=== PATIENT | female | born 1990 | race Caucasian/White ===

== ENCOUNTER 2020-09-20 07:20 | Inpatient (IN) | payer BC ==
[~2020-09-20] VITALS: Ht 162.6 cm; Wt 103.3 kg
[~2020-09-20 07:20] MED LIST: CUPRIMINE250 MG; FAMOTIDINE20 MG PO; IBUPROFEN IB200 MG PO; NEURONTIN300 MG PO; STRATTERA25 MG PO; WELLBUTRIN XL300 MG PO
--- OUTSIDE RECORDS SUMMARY | 2020-09-20 07:22 | XMS ---
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 ED/UCC VISIT TRACKING (12 MO.) 09/20/2020 07:[address] [facility] [place] TYPE: Emergency COMPLAINT: - SUBSTANCE WITHDRAWALS INPATIENT VISIT TRACKING (12 MO.) No inpatient visits to display in this time frame [email or web address]
[2020-09-20] MEDS ORDERED: BUPROPION XL150 MG PO (07:56)
--- NOTE | 2020-09-20 12:47 | EKG ---
[facility] [address] [place], [place] [address] Signed Sinus tachycardia Otherwise normal ECG No previous ECGs available Confirmed by ANNY NEGRETE MD ([id number]) on 09/20/2020 12:47:34 PM Electronically Signed By: ANNY NEGRETE MD 09/20/20 1247 PATIENT NAME: NITA DAMIAN Electrocardiogram DATE OF : 86 PHYSICIAN: ANNY NEGRETE MD REPORT #: [id number] REPORT IS CONFIDENTIAL AND NOT TO BE RELEASED WITHOUT AUTHORIZATION
--- NOTE | 2020-09-20 13:10 | NUR ---
30 YEAR OLD FEMALE ADMITTED TO CCU FROM ED VIA STRETCHER UNDER DR. NEGRETE WITH ALCHOLOL WITHDRAWAL. PATIENT LAST DRINK WAS YESTERDAY. ETOH LEVEL ON ADMIT TO [id number]. PATIENT C/O OF NAUSEA AND TREMORS. ADMISSION PROCESS STARTED. VALIUM 5 MG IV GIVEN FOR SEVERE TREMORS.
[2020-09-20] MEDS ORDERED: ATOMOXETINE HCL60 MG PO (13:42)
[2020-09-20] MEDS ORDERED: BUPROPION XL300 MG PO (13:43)
[2020-09-20] MEDS ORDERED: GABAPENTIN300 MG PO (13:45)
--- NOTE | 2020-09-20 13:45 | NUR ---
VALIUM 5 MG IV REPEATED CWIA >8.
[2020-09-20] MEDS ORDERED: VITAMIN D21250 MCG PO (13:46)
--- NOTE | 2020-09-20 15:00 | NUR ---
C/O ABD DISCOMFORT. -07/31. TYLENOL 650 MG PO GIVEN.
--- NOTE | 2020-09-20 15:40 | NUR ---
UP TO COMMODE. EXTREMELY SHAKEY. HR TO 150'S. PATIENT STATES HOW LONG IS THIS GOING TO LAST. I HAVE TOLD PATIENT SEVERAL TIMES ALREADY TODAY, SHE IS GOING THROUGH DT'S, CONTINUES TO REPEAT HERSELF ABOUT WHAT IS GOING ON WITH HER. UNABLE TO VOID. THIS IS THE SECOND TIME PATIENT ATTEMPTED TO URINATE. WILL NOTIFY .
--- NOTE | 2020-09-20 15:45 | NUR ---
DR. NEGRETE UPDATED ON PATIENT STATUS REGARDING VALIUN, VS AND INABILITY TO URINATE. POWERS CATH ORDERED AND PLACED WITH RETURN OF ORANGE URINE. PATIENT [id number] WELL.
--- NOTE | 2020-09-20 16:10 | NUR ---
UP TO COMMODE WITH ASSIST TO EXPELL SMALL LIQUID FOUL SMELL STOOL. PATIENT STATES SHE HAS BEEN HAVING DIARRHEA STOOLS FOR A FEW DAYS. WILL TALK WITH MD ABOUT SENDING STOOL CULT TO LAB. BACK TO BED WITH ASSIST. CONTINUES TO BE RENÉ EMERSON. HAS RECIEVED VALIUM 5 MG IV APPROX EVERY 1 HR SINCE ADMISSION.
--- NOTE | 2020-09-20 17:35 | NUR ---
UP TO COMMODE TO EXPELL LARGE LIQUID BROWN STOOL. REMAINS VERY UNSTEADY ON FEET. NEEDS MUCH DIRECTION. BACK TO BED W/O INCIDENT.
--- NOTE | 2020-09-20 18:00 | NUR ---
HAS RECIEVED VALIUM 5 MG Q HR SINCE ADMISSION TO CCU. REMAINS WITH SEVERE TREMORS. PATIENT STATES SHE IS AFRAID TO CLOSE HER EYES BECAUSE SHE IS SEEING THINGS.
--- NOTE | 2020-09-20 20:06 | NUR ---
PT AWAKE, STATES DOESN'T FEEL GOOD. DOES HAVE SOME ABD PAIN. HAS TREMORS AND FEES GEN WEAK. STATES SHE DIDN'T KNOW ALCOHOL WITHDRAWL WAS GOING TO BE SO BAD. ASSURE PT THAT STAFF WOULD HELP HER THROUGH IT. SPOKE OF RESTING BOWEL AND CL LIQ DIET. GIVEN 5MG VALIUM IV SCHEDULED. URINE IS SLIGHT ORANGE TINGED.
--- NOTE | 2020-09-20 20:50 | NUR ---
UP TO BSC TO HAVE SMALL LIQ STOOL. VERY UNSTEADY AND WEAK ON FEET. REQUESTING SOMETHING TO HELP WITH SLEEP. DR NEGRETE GIVEN UPDATE AND ORDER FOR OLIVER GARICA.
--- NOTE | 2020-09-20 22:00 | NUR ---
HAVE GIVEN VALIUM Q1 HR FOR CONT ETOH WITHDRAWLS. STATES SEES THINGS WHEN SHE CLOSES HER EYES. IS COOPERATIVE.
--- NOTE | 2020-09-20 23:16 | NUR ---
IS HEARING IV PUMP TALK. GIVEN 5MG VALIUM IV
--- NOTE | 2020-09-20 23:42 | NUR ---
UP TO BSC FOR SMALL LIQ STOOL AND PASSING LARG AMTS GAS.STEADIER ON FEET THIS TIME. WAS GIVEN 650MG TYLENOL PO FOR GEN PAIN/DISCOMFORT.
--- NOTE | 2020-09-21 00:10 | NUR ---
IV SITES TENDER. NEW SITE STARTED TR ARM. GIVEN 5MG VALIUM PO PT CONT TO HAVE VISUAL HALLUCINATIONS. IS COOPERATIVE.
--- NOTE | 2020-09-21 01:16 | NUR ---
GIVEN 5MG VLAIUM IV PT FEELS LIKE BED IS SHAKING.
--- NOTE | 2020-09-21 03:15 | NUR ---
CONT TO RECIEVE 5MG VLAIUM IV FOR WITHDRAWL SYMPTOMS. PT IS ALERT AND ORIENTED AND COOPERATIVE. NOT SLEEPING.
--- NOTE | 2020-09-21 04:20 | NUR ---
UP TO BSC TO HAVE SMALL LIQ STOOL AND PASS GAS. IS LESS TREMULOUS THAN BEFORE ADN PT STATESSHE IS FEELING A LITTLE STRONGER. GIVEN 5MG VALIUM IV . TAKING WATER VERY WELL AND GIVEN PUDDING, JELLO AND CRACKERS IS HUNGRY.
--- NOTE | 2020-09-21 05:30 | NUR ---
LAB IN TO DRAW BLOOD.
--- NOTE | 2020-09-21 06:20 | NUR ---
STATES LEGS ARE STARTING TO GET JUMPY/SHAKY. GIVEN 5MG VALIUM IV. HAS NOT SLEPT THIS NIGHT.
--- NOTE | 2020-09-21 07:14 | NUR ---
UP TO BS, NO BM. C/O GEN ACHES, GIVEN 650MG TYLENOL PO.
--- NOTE | 2020-09-21 07:30 | NUR ---
REPORT RECIEVED. PATIENT IS RESTFUL IN BED. C/O MILD ABD PAIN. TYLENOL GIVEN EARLIER.
--- NOTE | 2020-09-21 08:00 | NUR ---
ASSESSMENT DONE. TALKED WITH PATIENT ABOUT POC FOR DAY. IS UNDERSTANDING. MUCH LESS TREMORS TODAY. CONTINUE TO C/O GENERALIZED PAIN. POWERS CATH PATENT.
--- NOTE | 2020-09-21 08:30 | NUR ---
DR. NEGRETE HERE TO SEE PATIENT. ROUTINE MEDICATIONS GIVEN. PATIENT IS TALKATIVE AND IN GOOD SPIRITS.
--- NOTE | 2020-09-21 09:30 | NUR ---
TOOK BREAKFAST WELL. VALIUM 5 MG PO GIVEN FOR ETOH WITHDRAWAL. TAKING WATER WELL.
--- NOTE | 2020-09-21 12:58 | NUR ---
THIS RN IN TO CHECK ON PT. PT LAYING IN BED WATCHING TV. PT STATES SHE IS FINISHED EATING HER LUNCH. PT ALSO PROVIDED WITH WATER AT THIS TIME. PT REPORTS NO FURTHER NEEDS AT THIS TIME, LUNCH TRAY TAKEN AWAY. WILL CONTINUE PLAN OF CARE, CALL LIGHT IN REACH, BED IN LOWEST POSITION, IVF INFUSING ORDERED.
--- NOTE | 2020-09-21 14:04 | NUR ---
SCHEDULED MEDICATIONS ADMINISTERED AT THIS TIME, SCHEDULED PO VALIUM ADMINISTERED AT THIS TIME. PT DENIES HAVING ANY HALLUCINATIONS AT THIS TIME BUT REPORTS FEELING SLIGHTLY WARM AND STATES SHE HAS SOME MILD TREMORS IN HER "THIGHS". VITALS ASSESSED AND ARE WNL AT THIS TIME. PT ALERT AND ORIENTED X 3. PT REPORTS NO FURTHER NEEDS AT THIS TIME AND IS WATCHING TV LAYING IN BED. WILL CONTINUE PLAN OF CARE, CALL LIGHT IN REACH, BED IN LOWEST POSITION.
--- NOTE | 2020-09-21 15:54 | NUR ---
RESPONDED TO PT CALL LIGHT, PT LAYING IN BED AND STATED THAT HER ABDOMEN WAS FEELING "OFF". BOWEL TONES ASSESSED AND WERE HYPERACTIVE, ABDOMEN WAS SOFT WHEN PALPATING WITH NO COMPLAINTS OF PAIN. PT ASKED IF SHE WANTED TO TRY HAVING A BM AND USING THE BEDSIDE COMMODE, PT STATED YES. PT ABLE TO GET UP AND PIVOT TO [facility], GAIT NOTED TO BE UNSTEADY. PT UNABLE TO HAVE BM. WHEN WIPING HER BACKSIDE PT STATED HER WIPE WAS RUST/HAIRSTON COLORED. WIPE APPEARED TO HAVE A LIGHT HAIRSTON COLOR TO IT. PT STATED SHE HAS YET TO HAVE A BM TODAY. PT REPORTS SHE HAD SOME BLOOD PRESENT IN HER BRIEFS EARLIER, NONE NOTED AT THIS TIME ON BRIEFS OR ON BED/PADS. PT DENIED BEING LIGHTHEADED. PT THEN ABLE TO GET UP AND BACK INTO BED WITHOUT ASISSTANCE. PT DENIED LIGHTHEADEDNESS AND STATED SHE JUST FELT SLIGHTLY WEAK. VITALS TAKEN AT THIS TIME. TRACIE GRAHAM NOW IN ROOM WITH PT. PT REPORTS NO FURTHER NEEDS WHEN ASKED AT THIS TIME, TRACIE GRAHAM IN ROOM, CALL LIGHT IN REACH. WILL CONTINUE PLAN OF CARE.
--- NOTE | 2020-09-21 16:00 | NUR ---
ASSESSMENT DONE. HAS BEEN VOIDING TO COMMODE WITH ASSIST IN TRANSFER. IS MUCH MORE STABLE ON FEET. SMALL AMOUNT OF BLOOD NOTED ON GABBY PAD. PATIENT DENIES PREGNANACY. STATES SHE HAD SMALL AMOUNT OF SPOTTING LAST WEEK WELL. HAS BEEN TAKING WATER EXTREMELY WELL.
[2020-09-21] MEDS ORDERED: NEURONTIN300 MG PO (16:07)
--- NOTE | 2020-09-21 17:00 | NUR ---
PATIENT HAS MULTIPLE DIFFERENT AREAS OF PAIN, IS ANXIOUS REGARDING THIS. VALIUM 10 MG PO GIVEN.
--- NOTE | 2020-09-21 17:15 | NUR ---
IVF DC'D PER DR. NEGRETE ORDERS. PATIENT IS SITTING UP IN BED EATING DINNER.
--- NOTE | 2020-09-21 19:30 | NUR ---
REPORT TO NEXT SHIFT. PATIENT RESTUL
--- NOTE | 2020-09-21 20:30 | NUR ---
PT HAS BEEN RESTING REQUESTING VALIUM BECOMING ANXIOUS AND HAVING HALLUCINATIONS WHEN SHE TRIES TO SLEEP. SEES AND HEARS PEOPLE TRYING TO THROW AND HAND HER FOOD. ALSO C/O LEG ACHES AND THAT HER BODY JERKED. GIVEN 10MG VALIUM PO.
--- NOTE | 2020-09-21 20:50 | NUR ---
ASSISTED TO BSC. IS MUCH STRONGER TONIGHT. GIVEN HS SNACK AND TYLENOL FOR LEG ACHES.
--- NOTE | 2020-09-21 22:53 | NUR ---
SLEPT FOR ABOUT 1 HOUR, C/O LEGS AND ABD SHAKING. GIVEN 300 GABAPENTIN AND 5MG VALIUM PER SCHEDULE.
--- NOTE | 2020-09-22 00:27 | NUR ---
ASLEEP AT THIS TIME. WILL DEFER ASSESSMENT FOR NOW.
--- NOTE | 2020-09-22 02:10 | NUR ---
AWAKE, STATES IS BETTER BUT LEG DISCOMFORT IS BACK. UP TO BSC TO VOID. STARTED TO SEE FACES IN PICTURE ON WALL. GIVEN 650MG TYLENOL PO FOR DISCOMFORT AND 10MG VALIUM FOR ETOH WITHDRAWL.
--- NOTE | 2020-09-22 04:26 | NUR ---
SLEEPING AT THIS TIME.
--- NOTE | 2020-09-22 06:29 | NUR ---
AWAKENS EASILY. AM MEDS GIVEN. UP TO BSC TO VOID AND IS MUCH STEADIER ON FEET.
--- NOTE | 2020-09-22 07:30 | NUR ---
REPORT RECIEVED. PATIENT IS ASLEEP. NO DISTRESS NOTED.
--- NOTE | 2020-09-22 09:01 | NUR ---
SITTING UP IN BED FOR BREAKFAST. ASSESSMENT DONE. STATES SHE FEELS MUCH BETTER TODAY. IS COOPERATIVE. TALKED WITH PATIENT ABOUT POC FOR DAY. IS UNDERSTANDING. SL X 2 PATENT. NATALYAS PAIN.
--- NOTE | 2020-09-22 09:55 | NUR ---
AMBULATED TO WITH USING WALKER, DID WELL UNTIL RETURN TO BED.UPON RETURN TO BED, PATIENT C/O OF NAUSEA STATES SHE IS DIZZY. C/O OF ABD PAIN, HAVING RAMDOM SPPASTIC MOVEMENTS IN BODY, MOANING AND GROWNING. SKIN IS PALE AND DIAPHORTIC.
--- NOTE | 2020-09-22 10:06 | NUR ---
jail keeper assisted pt to the bathroom, pt used walker. Once pt was done she stated she felt light headed and dizzy. once pt got back to bed she because nauseous. lloyd notified rn no other needs at this time
--- NOTE | 2020-09-22 10:10 | NUR ---
ZOFRAN 4 MG IV GIVEN FOLLOWED BY VALIUM 5 MG IV. RETCHING W/O EMESIS.
--- NOTE | 2020-09-22 10:30 | NUR ---
MORE CALM AFTER VALIUN GIVEN, PATIENT ASKING WHY THIS IS HAPPENING. ASKING MANY APPROP QUESTIONS IN REGARD TO HER HEALTH.
--- NOTE | 2020-09-22 11:15 | NUR ---
UP TO COMMODE TO VOID 900 ML OF CLEAR YELLOW URINE.THEN TO CHAIR. UPON TRANSFER TO CHAIR, PATIENT C/O DIZZINESS AND NAUSEA. PATIENT STATES THIS IS JUST THE SAME THING THAT HAPPENED EARLIER, BACK TO BED. PATIENT BEGINING TO CRY. HR 130. DR. NEGRETE HERE IN ROOM AND AWARE OF SITUATION.
--- NOTE | 2020-09-22 11:34 | NUR ---
VALIUM 10 MG PO GIVEN. HAVING SPASTIC MOVEMENTS. PATIENT STATES WHEN SHE HOLDS ON TO HER ABD TIGHT HER SPASITIC MOVEMENTS SUBSIDE AND HER STOMAH FEELS BETTER. DIFFICULT TO EVALUATE PATIENT.
--- NOTE | 2020-09-22 12:00 | NUR ---
DOING MUCH BETTER NOW. LUNCH HELD AT THIS TIME. UA SENT TO LAB.
--- NOTE | 2020-09-22 12:58 | NUR ---
MUCH MORE CALM NOW. PATIENT IS TALKING ABOUT HOW SHE HASN'T BEEN TAKING HER MEDICATIONS FOR OVER THE PAST WEEK. PATIENT ASKING IF HAOW SHE HAS BEEN FEELING COULD BE FROM NOT TAKING THE GABAPENTIN. TOLD PATIENT THIS COULD BE A POSSIBLITY. I WILL TALK WITH MD AND PHARMIST.
--- NOTE | 2020-09-22 14:30 | NUR ---
RESTING WITH TV ON. DENEIS PAIN OR PROBLEMS AT THIS TIME.
--- NOTE | 2020-09-22 16:15 | NUR ---
SPOKE WITH PATIENT IN ROOM. PATIENT AWAKE AND ORIENTED. PATIENT DOES HAVE JUMP IN HR WHEN SITTING UP WITH CONVERSATION INTO 120'S. PATIENT IS TEARFUL ABOUT HER SITUATION. SHE LIVES IN [place] WITH A SISTER. SHE SAYS HER SISTER IS NOT SUPPORTIVE. 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 SHE HAS WORKED THERE TWO YEARS. SHE DRIVES. SHE USES NO DME. SHE STATES SHE HAS A UNDIAGNOSED MENTAL HEALTH PROBLEM. SHE WAS SUICIDAL A FEW YEARS AGO, WAS PLACED INPATIENT HOSPITAL BUT SHE STATES THEY DID NOT HELP HER. THEY "JUST THREW SOME MEDS AT ME". [place]. SHE STATES SHE HAS DEPRESSION. SHE HAS HAD ANXIETY. SHE HAS HAD WAYLON IN THAT SHE GETS EUPHORIC AND SPENDS MONEY. SHE DOES NOT DRINK DAILY, BUT HAS BINGES. SHE HAS TRIED TO FIND A COUNSELOR HERE. WENT TO ONE SHE DID NOT LIKE. SHE HAS CURRENTLY SEEN [facility], BUT SHE STATES "I THOUGHT HE WAS A COUNSELOR BUT ALL HE DOES IS GIVES ME MEDS". SHE HAS A PCP IN [place], [facility]. SHE HAS MULTIPLE FAMILY MEMBERS WHO ARE DRUG/ETOH ABUSERS, INCLUDING HER MOM, BIOLOGICAL FATHER AND SIBLINGS. SHE STATES SHE IS THE MOST STABLE SHE HAS WORKED CONSISTENTLY. BUT SHE IS AFRAID TO LOOSE HER JOB AND THAT SECURITY. SHE WANTS HELP WITH MENTAL HEALTH AND ETOH USE. SHE IS OPEN TO DUAL TREATMENT CENTER IF SHE WON'T LOOSE HER JOB. IF NOT SHE WANTS COUNSELING TO TRY AND GET A "REAL DIAGNOSIS". SHE IS OPEN TO ANY OPTIONS FOR HELP. WE DISCUSSED SHE START WITH HER INSURANCE TO SEE WHAT THEY WILL COVER AND WHERE SHE CAN GO. SHE IS OK WITH CM CALLING THEM AND ASKING FOR SOMEONE TO WORK WITH HER. SHE STATES THIS IS THE FIRST TIME SHE HAS HAD WITHDRAWL OR PROBLEMS LIKE THIS WITH THE ETOH. "IT SCARED ME". SHE STATES A SISTER ALMOST FROM WITHDRAWL ONCE. SHE STATES SHE TRIED AA HERE, BUT IT WAS A COUPLE PEOPLE THERE AND THERE WAS NO SPONSORS. SHE HAS NOT SEEN [facility]. PLAN IS THAT I WILL CALL HER INSURANCE TOMORROW. SHE IS OPEN TO A&D HELP. CM WILL CONTINUE TO FOLLOW.
--- NOTE | 2020-09-22 16:15 | NUR ---
JOINT FILLER TALKING WITH PATIENT.
--- NOTE | 2020-09-22 19:40 | NUR ---
HAS BEEN CALM FOR PAST SEVERAL HOURS. REPORT TO NEXT SHIFT.
--- NOTE | 2020-09-22 21:00 | NUR ---
HAS BEEN RESTFULL AND CALM. IS SOMEWHAT DISCOURAGED BY EARLIER EVENTS. REASURED. ASSISTED TO WASH HAIR AT BEDSIDE.
--- NOTE | 2020-09-22 21:45 | NUR ---
HS MEDS GIVEN. READY FOR SLEEP.
--- NOTE | 2020-09-22 23:40 | NUR ---
PT IS SLEEPING
--- NOTE | 2020-09-23 01:05 | NUR ---
PT SLEEPING VS AND ASSESSMENT DEFERRED.
--- NOTE | 2020-09-23 02:30 | NUR ---
UP TO VOID. MARNIE WELL
--- NOTE | 2020-09-23 04:30 | NUR ---
CONT TO SLEEP.
--- NOTE | 2020-09-23 05:30 | NUR ---
AWAKENED FOR LAB DRAW. NO C/O. SLEPT WELL. GIVEN WATER AND JIUCE.
--- NOTE | 2020-09-23 07:30 | NUR ---
report recieved. PATIENT IS RESTING IN BED. NO DISTRESS NOTED.
--- NOTE | 2020-09-23 08:00 | NUR ---
ASSESSMENT DONE. DENIES PAIN. TALKED WITH PATIENT ABOUT POC FOR DAY, INDICATES UNDERSTANDING. SITTING UP IN BED FOR BREAKFAST. VERY TALKATIVE.
--- NOTE | 2020-09-23 10:00 | NUR ---
AMBULATING TO BR USING WALKER. HR TO 130 WITH EXERTION. C/O SOME DIZZINESS WITH AMBULATION. NO TREMORS NOTED. FEELS FLUSHED AT TIMES.
--- NOTE | 2020-09-23 10:30 | NUR ---
SITTING UP IN CHAIR. LOOKING AT PHONE AND HAS TV ON. DR. NEGRETE HERE TO SEE PATIENT.
--- NOTE | 2020-09-23 15:00 | NUR ---
Spoke with Caryl. She is attempting to complete on line form for FMLA and ST disability through her insurance. Pt is agitated and having difficulty as she is shakey and cannot remember numbers or what she has read. Stayed with pt and walked her through form. When completed we discussed Peer to Peer support. She denies she has an alcohol problem, but states her mom and sister are both drunks. She feels she has a mental health issue and this is why she drinks. Discussed [facility], [facility], and [facility]. She would like and appt with [facility] and does agree to speak with [facility] for mental health and alcohol use. She states she knows she is an addict. Informed I will set up appts for her to get help.
--- NOTE | 2020-09-23 15:30 | NUR ---
AMBULATED TO ROOM 118 FROM 129 FOR SHOWER. HR 130 AT HIGHEST. DENIES DIZZINESS OR PAIN. MOVING MUCH BETTER. HAS BEEN USING WALKER WITH AMBULATION.
--- NOTE | 2020-09-23 15:45 | NUR ---
ASSESSMENT UNCHANGED. TOLERATED SHOWER WELL, DENIES PAIN OR DIZZINESS. HAS BEEN VOIDING LARGE AMOUNTS OF URINE AT A TIME. DENIES S/S OF UTI.
--- NOTE | 2020-09-23 16:40 | NUR ---
Called and spoke with Lesley at [facility] from [facility]. She will visit [facility] tomorrow AM. Called and scheduled appt with [facility] for October 02 at 3 pm. Rn updated.
--- NOTE | 2020-09-23 17:23 | NUR ---
SITTING UP IN BED TO EAT EAT DINNER.
--- NOTE | 2020-09-23 18:34 | NUR ---
HAS HAD VERY GOOD DAY. RESTING. DR. NEGRETE AWARE, NO FUTHER ORDRS.
--- NOTE | 2020-09-23 19:54 | NUR ---
AMB TO BR AND MARNIE WELL. STATES SOMETIMES STILL GETS A LITTLE DIZZY AND OCC BLURRED VISION BUT OVERALL IMPROVING. ASSURED THOSE THINGS WOULD ALSO IMPROVE WITH TIME. DISCUSSED PLAN FOR SLEEP TONIGHT AND GIVEN PROTIEN PACK A SNACK.
--- NOTE | 2020-09-23 21:11 | NUR ---
AMB TO BR TO VOID, MARNIE WELL. READY FOR SLEEP. HS MEDS GIVEN. TYLENOL GIVEN FOR LEG AND HIP SORENESS.
--- NOTE | 2020-09-23 23:15 | NUR ---
AMB TO BR TO VOID AND TRY TO HAVE BM. MARNIE WELL. NO OTHER C/O.
--- NOTE | 2020-09-24 03:30 | NUR ---
PT CON TO SLEEP SOUNDLY
--- NOTE | 2020-09-24 05:58 | NUR ---
AWAKENED FOR LAB DRAW AND AM MEDS. AMB TO BATHROOM ON OWN USING WALKER AND DID VERY WELL. STATES VISION HAD BEEN BLURRY BUT CLEAR THIS AM. TALKED ABOUT POSSABILTY OF GOING TO ALCOHOLICS ANONYMOUS WITH HER SISTER IN THE FUTURE. LOOKING FORWARD TO BREAKFAST.
--- NOTE | 2020-09-24 08:40 | NUR ---
PT CALL LIGHT ON. PT REQUESTS ASSISTANCE UP TO RESTROOM, STAND BY RAJAT WITH FRONT WHEEL WALKER UP TO RESTROOM. PT VOIDS 350ML CLEAR YELLOW URINE WITHOUT ISSUE. PT PERFORMS SELF MORNING CARES AND ORAL CARE. STAND BY ASSIST WITH FWW UP TO CHAIR. ICE WATER REFILLED. LINENS CHANGED. PT EATING BREAKFAST, NO ADDITIONAL REQUESTS OR COMPLAINTS. CALL LIGHT WITHIN REACH. PTS RN AT BEDSIDE WORKING WITH PT.
--- NOTE | 2020-09-24 09:02 | NUR ---
PT U ELIDIA RECLINER CONSUMED 100% OF BREAKFAST. TALKING, ALERT AND ORIENTED, TALKING ABOUT ETOH TREATMENT AND PLAN FOR LIFE CHANGES
--- NOTE | 2020-09-24 10:55 | NUR ---
HARI..PEER TO PEER SUPERVISOR [facility] IN ROOM NOW TO VISIT.
--- NOTE | 2020-09-24 10:58 | NUR ---
PT TAKEN OFF MONITOR IN ROOM, V/S STABLE AT THIS TIME. HR 97 BPM
--- NOTE | 2020-09-24 12:14 | NUR ---
pt transfered to m/s at this time to rogerio kc.
--- NOTE | 2020-09-24 12:19 | NUR ---
Patient to medical floor. Patiend arrived to unit alert and oriented x4. Vital signs are stable, afebrile. Lunch to patient. Patient denies sob, no notable distress. Oriented patient to room and call light. No current needs.
--- NOTE | 2020-09-24 14:54 | NUR ---
PATIENT SET UP FOR SHOWER, USING SHOWER CHAIR. PATIENT UNDERSTANDS TO CALL IF SHE NEEDS ANYTHING AT ALL WHILE IN SHOWER. PATIENT NOT HAPPY ABOUT USING FWW, THIS GRIP WRAPPER EXPLAINED TO PATIENT SHE IS STILL VERY WEAK SO WALKER IS VERY HELPFUL FOR SUPPORT. LINENS CHANGED. VITALS AND I&OS CHARTED. NO OTHER NEEDS AT THIS TIME
--- NOTE | 2020-09-24 16:04 | NUR ---
Patient resting in bed, eyes closed, respirations even and non labored. Patient has no distress. Personal supplies and call light within reach.
--- NOTE | 2020-09-24 16:30 | NUR ---
Received 3 calls from pts egg caser at [facility]. Received numbers for [facility] and [facility] which can assist her. Pt also spoke with Lesley from [facility] this am. Lesley called with update as pt does not feel she has an issue with alcohol. Lesley states she will not be able to place pt into rehab if she does not accept responsibility for her alcohol use. [facility] will return today and offer what is available to this pt. Updated Lesley I made an appt with [facility] also as pt feels this it the direction she needs to go to seek help.
--- NOTE | 2020-09-24 17:58 | NUR ---
PATIENT RESTING IN BED, EYES CLOSED. WOKE TO VOICE. VITALS AND I&OS CHARTED. FRESH ICE WATER PROVIDED, CALL LIGHT IN REACH, NO OTHER NEEDS AT THIS TIME
--- NOTE | 2020-09-24 20:07 | NUR ---
PATIENT GIVEN PM MEDS AND ASSESSMENT COMPLETE. PATIENT HAVING NO SIGNS OR SYMPTOMS OF WITHDRAWL AT THIS TIME. UP TO THE BATHROOM WITH FWW AND BACK TO BED. CALL LIGHT IS IN REACH AND ICE WATER REFILLED.
--- NOTE | 2020-09-24 23:18 | NUR ---
PATIENT AMBULATED FROM BED TO BATHROOM AND BACK TO BED, SBA WITH FWW. FRESH ICE WATER WAS PROVIDED. VITALS WERE CHARTED. CALL LIGHT IN REACH AND NO FURTHER NEEDS AT THIS TIME.
--- NOTE | 2020-09-25 02:02 | NUR ---
PATIENT RESTING QUIETLY ON HER LEFT SIDE IN BED, EYES CLOSED, RESPIRATIONS REGULAR AND EVEN, CALL LIGHT IS IN REACH.
--- NOTE | 2020-09-25 06:46 | NUR ---
PATIENT HAS SLEPT WELL. NO SIGNS OR SYMPTOMS OF WITHDRAWL. GOOD ORAL INTAKE, VS STABLE, LUNGS CLEAR, AND BOWEL TONES ACTIVE. ICE WATER REFILLED AND PATIENT'S CALL LIGHT IS IN REACH.
--- NOTE | 2020-09-25 07:21 | NUR ---
Received 3 phone messages from Mayda at [facility] requesting my email as she was able to determine which counseling programs are in Network for this patient. Called and left my email.
--- NOTE | 2020-09-25 07:41 | NUR ---
REPORT RECEIVED FROM TRACIE ROSADO. PT UP TO CHAIR. PT REPORTS 04/30 ACHING HEADACHE. SEE MAR FOR MEDICAITON GIVEN. WATER REFILLED. PT DENIES ADDITIONAL REQUESTS OR COMPLAINTS. PT REPORTS "FEELING MUCH BETTER TODAY." CALL LIGHT WITHIN REACH. BED RAILS UP.
--- NOTE | 2020-09-25 09:07 | NUR ---
ORDERS TO PLACE TELEMETRY. TELE #5 PLACED. PT IN BED. PRIMARY NURSE NOTIFIED.
--- NOTE | 2020-09-25 09:47 | NUR ---
MORNING ASSESSMENT AND MEDICATION DUE. PT RESTING IN BED. TALKING WITH PHILIP FROM [facility] AT BEDSIDE WORKING WITH PT TO COMPLETE QUESTIONARE. PT FINISHED WITH BREAKFAST, AT 100%. PT REPORTS MILD NAUSEA AFTER BREAKFAST. PT STATES HER HEADACHE HAS RESOLVED. CIWA SCORE OF 4 PT STATES SHE IS "SO SWEATY," MILD NAUSEA AND MILD ANXIETY. PT INTERACTING WITH STAFF AND VISITORS APPROPRAITLY. PT ORIENTED TO ALL. PT REPORTS FEELINGS OF CONSTIPATION, SEE MAR FOR MEDICATION GIVEN. BRUISES OVER SKIN REMAIN UNCHANGED. MEDICATIONS GIVEN. PT CONTINUES VISITING WITH HARI SALCEDO. PTS MOTHER AT BEDSIDE. NO ADDITIONAL REQUESTS OR COMPLAINTS. CALL LIGHT WIHTIN REACH. BED RAILS UP.
--- NOTE | 2020-09-25 10:15 | NUR ---
THIS RN TO ROOM TO CHECK ON PT. PT SITTING UP IN BED. CONTINUES TO REPORT "FEELING REALLY SWEATY." PT DENIES PAIN AND NAUSEA. PHYSICAL THERAPIST TO BESIDE TO WORK WITH PT. PT DENIES ADDITIONAL REQUESTS OR COMPLAINTS. CALL LIGHT WITHIN REACH.
--- NOTE | 2020-09-25 11:15 | NUR ---
THIS RN TO ROOM TO CHECK ON PT. PT SITTING UP IN BED VISITING WITH HER MOTHER. CAREGIVER TRAY ORDERED FOR HER MOTHER. ICE WATER REFILLED. 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 PT STATES SHE WILL WAIT TO TAKE A SHOWER UNTIL AFTER DINNER. NO ADDITIONAL REQUESTS OR COMPLAINTS. CALL LIGHT WITHIN REACH.
--- NOTE | 2020-09-25 11:45 | NUR ---
Spoke with Caryl. Updated I have spoken with her CM from [facility] and gave her the options available. She worked with [facility] this AM for counseling. Pt states she still requires a walker.
--- NOTE | 2020-09-25 12:10 | NUR ---
THIS RN TO ROOM TO CHECK ON PT. PT FINISHED WITH LUNCH. PT REPORTS BOTH DIZZINESS AND SWEATINESS HAVE IMPROVED. PT DENIES HEADACHE AND NAUSEA. NO TREMORS NOTED. CIWA SCORE OF 2. PT UP TO AMBULATE IN ROOM, SBA, STEADY ON FEET WITHOUT WALKER. PT UP TO SHOWER. NO ASSISTANCE NEEDED, SITTING ON SHOWER CHAIR, INDEPENDANT WITH ADLS. LINENS CHANGED. ORAL CARE DONE BY PT. MEDICATIONS GIVEN. PT DENIES ADDITIONAL REQUESTS OR COMPLAINTS. CALL LIGHT WITHIN REACH. BED RAILS UP.
--- NOTE | 2020-09-25 12:55 | NUR ---
BAG OF PTS HOME MEDICATIONS FOUND AT FOOT OF BED IN PTS ROOM. PT STATES SHE WAS GOING THROUGH HER MEDICATIONS WITH PHILIP FROM [facility]. PT STATES SHE HAS NOT TAKEN ANY OF THESE MEDICATIONS SINCE SHE ARRIVED AT THE HOSPITAL BUT THAT CCU NURSES WERE USING VIALS TO VERIFY HER HOME MEDICATIONS. BAG OF MEDICATIONS GIVEN TO PTS MOTHER TO TAKE HOME.
--- NOTE | 2020-09-25 15:00 | NUR ---
AFTERNOON ASSESSMENT DUE. MD TO BEDSIDE FOR ROUNDS. PT VERBALIZES UNDERSTANDING OF PLAN OF CARE. PT REQUESTS THAT IV BE REMOVED. PT VERBALIZES UNDERSTANDING THAT IV WILL HAVE TO BE RESTARTED IF HER CONDITION CHANGES. PT CONTINUES TO REQUEST IV REMOVAL. MD STATES OK TO REMOVE IV AT THIS TIME. IV DC'D PER PROTOCOL, GAUZE AND COBAN APPLIED. LUNG SOUNDS CLEAR. HEART RATE 80-90'S AT THIS TIME PER TELEMETRY MONITORING. TACHYCARDIA WITH ACTIVITY CONTINUES UP TO 130'S SO FAR THIS SHIFT. PT CONTINUES TO REPORT CONSTIPATION. NIO ORDER PLACED FOR SENNA, AWAITING PHARMACIST VARIFICATION. DINNER ORDER PLACED. PT DENIES ADDITIONAL REQUESTS OR COMPLAINTS AT THIS TIME. CALL LIGHT WITHIN REACH. ICE WATER REFILLED.
--- NOTE | 2020-09-25 16:06 | NUR ---
THIS RN TO ROOM TO CHECK ON PT. PT AGREES TO AMBULATE IN REVELES. PT AMBULATES WITH STAND BY ASSIST X3 LAPS IN REVELES. HEART RATE MAINTAINING 90-110'S WITH AMBULATION. SENNA GIVEN PER ORDER. PT UP TO CHAIR READING BOOK. NO ADDITIONAL REQUESTS OR COMPLAINTS. CALL LIGHT WITHIN REACH. MD UPDATED ON PTS AMBULATION ABILITIES AND HEART RATE WITH ACTIVITY.
--- NOTE | 2020-09-25 18:00 | NUR ---
THIS RN TO ROOM TO CHECK ON PT. PT UP TO RESTROOM, INDEPENDANT WITH AMBULATION. PT STEADY ON FEET. HEART RATE 96 WITH AMBULATION. PT DENIES PAIN AND NAUSEA. PT BACK TO BED. NO ADDITIONAL REQUESTS OR COMPLAINTS. CALL LIGHT WITHIN REACH. BED RAILS UP.
--- NOTE | 2020-09-25 18:50 | NUR ---
PT HERE FOR ETOH WITHDRAWL. PT UP WITH STAND BY ASSIST THIS SHIFT, PT INCREASINGLY STEADY ON FEET AND INDEPENDANT IN ROOM BY THE END OF SHIFT. PT UP TO AMBULATE IN REVELES. TELEMENETRY MONITORING IN PLACE. PT TACHYCARDIC WITH AMBULATION, IMPROVING. PT STARTED ON PROPRANOLOL THIS SHIFT. CIWA SCORES IMPROVING (4, 2, AND 0). IV DC'D PER MD ORDER. PT VISITED WITH REPRESENTITIVE FROM [facility] THIS SHIFT. PT TOERLATING REGULAR DIET. PT/OT THIS SHIFT. PT VOIDING QUANTITY SUFFICIENT. PT USES CALL LIGTH APPROPRIATLY.
--- NOTE | 2020-09-25 19:10 | NUR ---
REPORT GIVEN TO TRACIE BAIN, WHO IS ASSUMING CARE OF PT.
--- NOTE | 2020-09-25 19:10 | NUR ---
SHIFT REPORT RECEIVED FROM TRUEPASALAS HAMPTON AT BEDSIDE. pt INDEPENDENT IN ROOM AND RETURNING FROM THE BATHROOM. TELE#[address], SINUS RHYTHM, HR WNL, 80'S. BOARD UPDATED AND CALL LIGHT REMAINS IN PLACE, NO FURTHER NEEDS AT THIS TIME.
--- NOTE | 2020-09-25 20:32 | NUR ---
ASSESSMENT COMPLETE, SCHEDULED MEDS GIVEN (SEE EMAR). pt DENIES PAIN AND NAUSEA, DENIES PASSING GAS. TELE IN PLACE, SINUS RHYTHM, HR AND REMAINING VSS. pt INDEPENDENT IN ROOM, NO FURTHER NEEDS. FRESH WATER PROVIDED, CALL LIGHT IN REACH.
--- NOTE | 2020-09-25 23:56 | NUR ---
pt RESTING QUIETLY IN BED AND IS FACING WINDOW, RR EVEN AND UNLABORED. NO DISTRESS OR SIGNS OF PAIN NOTED. CALL LIGHT IN REACH. pt INDEPENDENT IN ROOM.
--- NOTE | 2020-09-26 02:34 | NUR ---
pt RESTING IN BED WITH EYES CLOSED, RR EVEN AND UNLABORED. NO DISTRESS NOTED, TELE#[address], HR 75, SINUS RHYTHM. NO DISTRESS NOTED, CALL LIGHT IN REACH.
--- NOTE | 2020-09-26 04:04 | NUR ---
ROUNDED ON pt, pt AWAKE AND RESTING IN BED. ASSESSMENT COMPLETE, NO NEW CHANGES OR CONCERNS. pt DENIES PAIN AND NAUSEA. TO CLUMP CARE AND ALLOW pt TO REST, VS TAKEN EARLY. VSS. NO FURTHER NEEDS, CALL LIGHT IN REACH.
--- NOTE | 2020-09-26 07:17 | NUR ---
REPORT RECEIVED FROM TRACIE BAIN. PT RESTING IN BED WITH HEAD OF BED AT 35 DEGREES. PT DENIES PAIN, NAUSEA, HEADACHE AND NAUSEA. HEAR TRATE OF 107 AT THISTIME. ICE WATER AND COFFEE PROVIDED. PTDENIES ADDITIONAL REQUESTS OR COMPLAINTS. CALL LIGHT WITHIN REACH. BED RAILS UP.
--- NOTE | 2020-09-26 07:52 | NUR ---
Received a fax from [employer] requesting pts chart as pt filed a FMLA claim. With pts permission, Face sheet, H&P, progress notes, PT/OT evals faxed to [employer] [place].
--- NOTE | 2020-09-26 09:42 | NUR ---
MORNING ASSESSMENT AND MEDICATION DUE. THIS RN TO ROOM. PT SITTING UP IN BED, FINISHED WITH BREAKFAST. PT DENIES PAIN AND NAUSEA "EXCEPT FOR A SHARP PAIN ONCE IN MY BACK ON THE RIGHT SIDE WHEN I WAS UP TO THE CHAIR." PT STATES PAIN IS GONE NOW, "IT ONLY LASTED A SECOND." PT REPORTS MUSCLE CRAMPS HAVE IMPROVIED. BLURRED VISION STILL COMES AND GOES. PT REPORTS VISION IS CLEAR AT THIS TIME. CIWA SCORE OF 0. PT DENIES HEADACHES, NAUSEA, TREMORS, SWEATING AND OTHER SYMPTOMS. TACHYCARDIA CONTINUES WITH ACTIVITY AND EXCITMENT. HEART RATE 106 AT THIS TIME, SLOWS TO 80s WHEN PT IS CALM. MEDIACTIONS GIVEN (SEE MAR). PT REPORTS SHE WORKED WITH [employer] THIS MORNING AND WAS "ABLE TO DO TWICE LONG I DID YESTERDAY." PT REPORTS A VERY LARG BOWEL MOVEMENT THIS MORNING, DECLINES ADDITIONAL BOWEL MEDICATIONS. PT UP FOR SHOWER, INDEPENDANT WITH SHOWER, STEADY ON FEET. HEART RATE 106 WITH SHOWER. PT DENIES ADDITIONAL REQUESTS OR COMPLAINTS. CALL LIGHT WITHIN REACH.
--- NOTE | 2020-09-26 09:45 | NUR ---
In and spoke with Caryl. Notified saw her and she will dc today. She is anxious to go home. UPdated OT feels she would benefit from a shower chair. Explained about [place] lending closet and she can get one for free for 3 months. Updated chart has been faxed to [facility] and she thanks me. She will follow up with Alexy and has her appt in her phone for [employer]. She denies any other needs and her mother will pick her up when dc is complete.
[2020-09-26] MEDS ORDERED: PROPRANOLOL HCL10 MG PO (10:32)
--- NOTE | 2020-09-26 10:59 | NUR ---
PT READY FOR DISCHRAGE. PHARMACIST TO BEDSDIE TO REVIEW MEDICATIONS WITH PT. PT VERBALIZES UNDERSTANDING OF MEDICATIONS AND STATES HER QUESITONS HAVE BEEN ANSWERED. DISCHARGE INSTRUCTIONS REVIWED WITH PT. PT VERBALIZES UNDERSTANDING OF MEDICATION, FOLLOW UP, AND INSTRUCTIONS. PT STATES HER QUESTIONS HAVE BEEN ANSWERED. VITALS SIGNS STABLE. PT UP IN ROOM PACKING BELONGINGS. AWAITING HER MOTHER TO ARRIVAL TO UNIT WITH HER CLOTHES. NO ADDITIONAL REQUESTS OR COMPLAINTS. CALL LIGHT WITHIN REACH.
== END 2020-09-26 11:50 | disposition home or self-care (01) | DRG 897 ==
LOC: ED 07:20 → CCU 11:57 → MS 09-24 12:15
PROVIDERS: ADMIT Internal Medicine; ATTEND Internal Medicine
DX: F10.239 Alcohol dependence with withdrawal, unspecified (principal); F98.8 Other specified behavioral and emotional disorders with onset usually occurring in childhood and adolescence; F10.280 Alcohol dependence with alcohol-induced anxiety disorder; F41.9 Anxiety disorder, unspecified; Z98.890 Other specified postprocedural states; Z79.899 Other long term (current) drug therapy; E86.0 Dehydration; E83.42 Hypomagnesemia
CPT/HCPCS: 80048; 80053; 81001; 83690; 83735; 84703; 85025; 93005; 93010; 97110; 97116; 97162; 97165; 97535; C9113; C9803; G0480; J0610; J0696; J2060; J2405; J3360; J3411; J3475; J3480; J7030; J7120; U0003

== ENCOUNTER 2021-02-20 12:59 | Emergency (ER) | payer BC ==
[~2021-02-20] VITALS: Ht 162.6 cm; Wt 113.4 kg
[~2021-02-20 12:59] MED LIST changes: +ATOMOXETINE HCL60 MG PO; +BUPROPION XL150 MG PO; +BUPROPION XL300 MG PO; +GABAPENTIN300 MG PO; +PROPRANOLOL HCL10 MG PO; +VITAMIN D21250 MCG PO
--- OUTSIDE RECORDS SUMMARY | 2021-02-20 13:02 | XMS ---
PreManage Notification: NITA DAMIAN Security Head Of Human Resources Events No recent Security Events currently on file CRITERIA MET - PDMP CARE PROVIDERS BLOSSOM POOL [facility] Current PHONE: Unknown Care Guidelines exist for the following facilities: [facility] ( 05/12/2015 ) [place] VISIT COUNT (12 MO.) 2 [facility] TOTAL 2 NOTE: Visits indicate total known visits. ED/UCC VISIT TRACKING (12 MO.) 02/20/2021 13:00 [facility] [place] TYPE: Emergency COMPLAINT: - COUGH, BODY ACHES, SORE THROAT, HEADACHE, FATIGUE 09/20/2020 07:20 [facility] [place] TYPE: Emergency COMPLAINT: - SUBSTANCE WITHDRAWALS INPATIENT VISIT TRACKING (12 MO.) 09/20/2020 11:[address] [facility] [place] TYPE: Medical Surgical COMPLAINT: - ALCOHOL WITHDRAWAL DIAGNOSES: - Hypomagnesemia - Alcohol dependence with withdrawal, unspecified - Alcohol dependence with alcohol-induced anxiety disorder - Other specified postprocedural states - Dehydration - Other [place] [facility] (current[facility] drug therapy - Other specified behavioral and emotional disorders with onset usually occurring in childhood and adolescence - Anxiety disorder, unspecified [email or web address]
== END 2021-02-20 15:40 | disposition home or self-care (01) ==
LOC: ED 12:59
DX: U07.1 COVID-19 (principal); Z88.8 Allergy status to other drugs, medicaments and biological substances; Z79.899 Other long term (current) drug therapy
CPT/HCPCS: 99284; U0003

== ENCOUNTER 2021-05-10 22:14 | Emergency (ER) | payer BC ==
[~2021-05-10] VITALS: Ht 162.6 cm; Wt 113.4 kg
--- OUTSIDE RECORDS SUMMARY | 2021-05-10 22:16 | XMS ---
PreManage Notification: NITA DAMIAN Security Industrial Safety And Health Manager Events No recent Security Events currently on file CRITERIA MET - FERNANDOP CARE PROVIDERS VIJAY CORONEL Physician Analytical Statistician Current PHONE: [phone] BLOSSOM POOL [facility] Current PHONE: Unknown Care Guidelines exist for the following facilities: [facility] ( 05/12/2015 ) [place] VISIT COUNT (12 MO.) 3 [facility] TOTAL 3 NOTE: Visits indicate total known visits. ED/UCC VISIT TRACKING (12 MO.) 05/10/2021 22:14 [facility] [place] TYPE: Emergency COMPLAINT: - ABD PAIN, FEVER 02/20/2021 13:00 [facility] TYPE: Emergency COMPLAINT: - COUGH, BODY ACHES, SORE THROAT, HEADACHE, FATIGUE DIAGNOSES: - Other [facility] (current) drug therapy - Allergy status to other drugs, medicaments and biological substances - COVID-19 - COUGH, UNSPECIFIED 09/20/2020 07:20 [facility] TYPE: Emergency COMPLAINT: - SUBSTANCE WITHDRAWALS INPATIENT VISIT TRACKING (12 MO.) 09/20/2020 11:57 [facility] TYPE: Medical Surgical COMPLAINT: - ALCOHOL WITHDRAWAL DIAGNOSES: - Hypomagnesemia - Alcohol dependence with withdrawal, unspecified - Alcohol dependence with alcohol-induced anxiety disorder - Other specified postprocedural states - Dehydration - Other long term care pharmacist (current) drug therapy - Other specified behavioral and emotional disorders with onset usually occurring in childhood and adolescence - Anxiety disorder, unspecified [email or web address]
[2021-05-11] MEDS ORDERED: ULTRAM50 MG PO (00:50)
[2021-05-11] MEDS ORDERED: ONDANSETRON ODT8 MG PO (00:50)
[2021-05-11] MEDS ORDERED: ATOMOXETINE HCL40 MG PO (22:46)
[2021-05-11] MEDS ORDERED: LAMOTRIGINE25 MG (22:47)
[2021-05-11] MEDS ORDERED: AMOX TR-K CLV1 EAC1 (22:47)
[2021-05-11] MEDS ORDERED: IBUPROFEN600 MG (22:47)
[2021-05-11] MEDS ORDERED: LAMOTRIGINE100 MG (22:47)
[2021-05-11] MEDS ORDERED: CEPHALEXIN500 MG (22:47)
[2021-05-11] MEDS ORDERED: WELLBUTRIN XL300 MG (22:47)
[2021-05-11] MEDS ORDERED: WELLBUTRIN XL150 MG (22:47)
[2021-05-11] MEDS ORDERED: LAMICTAL100 MG PO (22:48)
[2021-05-13] MEDS ORDERED: OXYCODONE HCL5 MG PO (12:14)
[2021-05-13] MEDS ORDERED: IBU600 MG PO (12:15)
== END 2021-05-11 01:14 | disposition home or self-care (01) ==
LOC: ED 22:14
DX: R10.31 Right lower quadrant pain (principal); Z88.8 Allergy status to other drugs, medicaments and biological substances; Z79.899 Other long term (current) drug therapy; Z20.822 Contact with and (suspected) exposure to COVID-19
CPT/HCPCS: 36415; 74177; 80053; 81001; 84703; 85025; 96375; 99284-25; C9803; J1170; J2405; J7030; U0003

== ENCOUNTER 2025-01-31 12:20 | Inpatient (IN) | payer BC ==
[~2025-01-31] VITALS: Ht 162.6 cm; Wt 118.0 kg
[~2025-01-31 12:20] MED LIST changes: +AMOX TR-K CLV1 EAC1; +ATOMOXETINE HCL40 MG PO; +CEPHALEXIN500 MG; +IBU600 MG PO; +IBUPROFEN600 MG; +LAMICTAL100 MG PO; +LAMOTRIGINE100 MG; +LAMOTRIGINE25 MG; +ONDANSETRON ODT8 MG PO; +OXYCODONE HCL5 MG PO; +ULTRAM50 MG PO; +WELLBUTRIN XL150 MG; +WELLBUTRIN XL300 MG
[2025-01-31] MEDS ORDERED: LORazepam 2 MG/ML VIAL ONE (12:45)
[2025-01-31] MEDS ORDERED: LORazepam 2 MG/ML VIAL IV ONE ×4 (13:00→19:15)
[2025-01-31] MEDS ORDERED: SODIUM CHLORIDE 0.9% 1,000 ML IV PRN ×2 (14:00→19:15)
[2025-01-31] MEDS ORDERED: PHENOBARBITAL SOD 130 MG/ML VIAL IV ONE ×2 (14:15→16:00)
[2025-01-31 14:20] LABS: BASOPHILS 0.6 % (0.1-1.2); EOSINOPHILS 0 % (0.7-5.8); LYMPHOCYTES 7.0 % (19.3-51.7); MCH 29.9 PG (25.6-32.2); MCHC 34.4 g/dL (32.2-35.5); MCV 86.8 fL (79.4-94.8); MONOCYTES 3.7 % (4.7-12.5); NEUTROPHILS 88.1 % (34.0-71.1); RBC 4.55 M/uL (3.93-5.22)
[2025-01-31] MEDS ORDERED: FOLIC ACID 1 MG/0.2 ML ML IV ONE (14:45)
[2025-01-31] MEDS ORDERED: THIAMINE HCL 200 MG/2 ML VIAL IV ONE (14:45)
[2025-01-31] MEDS ORDERED: MULTIVITAMINS THERAPEUTIC 1 EA TAB PO ONE (14:45)
[2025-01-31 14:46] LABS: ALT (SGPT) 107.0 U/L (14-59); AST (SGOT) 89.0 U/L (15-37); GLOMERULAR FILTRATION RATE,EST 122.0 mL/min (>60); PROTEIN, TOTAL 6.7 g/dL (6.4-8.2); UREA NITROGEN 12.0 mg/dL (7-18)
[2025-01-31] MEDS ORDERED: FOLIC ACID 1 MG TAB PO SCH (15:17)
[2025-01-31] MEDS ORDERED: THIAMINE HCL 100 MG TAB PO SCH (15:17)
[2025-01-31 19:10] LABS: BLOOD/HGB, URINE SMALL (Negative); KETONE, URINE SMALL (Negative); LEUK ESTERASE, URINE NEGATIVE (negative); NITRITE, URINE NEGATIVE (negative)
[2025-01-31] MEDS ORDERED: LIDOCAINE 2% VISCOUS 6 ML SYR TOP ONE (19:15)
[2025-01-31 19:21] LABS: BACTERIA, URINE NONE SEEN /hpf (negative); CASTS, URINE NONE SEEN \\lpf; CRYSTALS, URINE NONE SEEN (0-1+); EPITHELIAL CELLS, URINE SQUAMOUS 1+ /lpf (0-1+)
[2025-01-31 19:22] LABS: REFLEX CULTURE, URINE No (No)
[2025-01-31] MEDS ORDERED: PANTOPRAZOLE SODIUM 40 MG/10 ML VIAL IV SCH (19:41)
[2025-01-31] MEDS ORDERED: LACTATED RINGER'S 1,000 ML IV SCH (19:45)
[2025-01-31] MEDS ORDERED: PROCHLORPERAZINE EDISYLATE 10 MG/2 ML VIAL IV PRN (19:45)
[2025-01-31] MEDS ORDERED: LORazepam 2 MG/ML VIAL IV/IM PRN ×2 (19:45→20:45)
[2025-01-31] MEDS ORDERED: ACETAMINOPHEN 325 MG TAB PO PRN (19:45)
[2025-01-31] MEDS ORDERED: PHENOBARBITAL SOD 130 MG/ML VIAL IV SCH (20:00)
--- NOTE | 2025-01-31 20:00 | NUR ---
REPORT RECIEVED FROM ED NURSE, BERTA. PATIENT TRANSFERED VIA STRETCHER AND WALKED TWO FEET TO CCU BED. PATIENT UNSTEADY AND TREMULOUS ON FEET. PATIENT DENIES FEELING LIGHT HEADED OR DIZZY. PATIENT EXPRESSED CONCERNS OF NOT BEING ABLE TO WALK AFTER WITHDRAWAL. REASSURED THAT WE WILL CROSS THAT BRIDGE IF WE GET THERE. ADMISSION COMPLETE. VICENTE HODGES PLACED ULTRASOUND IV IN LEFT ARM. IV FLUIDS, ANTIBIOTICS AND ELECTROLYTES ARE INFUSING WNL. PATIENT DENIES PAIN. CIWA 21, PHENOBARBITAL GIVEN PER APR. POWERS IN PLACE WITH QUANITITY SUFFICENT BILI COLORED URINE. TWO SOFT SEMI LQUID BOWEL MOVEMENTS ON COMMODE. ICE WATER AND PUDDING GIVEN TOLERATED.
[2025-01-31 20:06] VITALS: BP 165/96
--- NOTE | 2025-01-31 20:34 | NUR ---
REVIEWED LABS WITH ; ORDERS RECEIVED TO USE CCU PROTOCOL FOR ELECTROLYTE REPLACEMENT. ALSO REVIEWED PATIENT'S CURRENT CIWA AND RESPONCE TO ATIVAN IN THE ED; ORDER CHANGED TO 1 TO 2 MG ATIVAN FOR THE CIWA PROTOCOL. VERIFIED VIA REPEAT BACK.
[2025-01-31] MEDS ORDERED: MAGNESIUM SULFATE 2 GM/50 ML BAG IV SCH (20:45)
[2025-01-31] MEDS ORDERED: ELECTROLTYTE REPLACEMEMT CCU 1 EACH EA MISC PRN (20:45)
[2025-01-31 21:00] VITALS: BP 158/70
[2025-01-31] MEDS ORDERED: GABAPENTIN 300 MG CAP PO SCH (21:00)
[2025-01-31] MEDS ORDERED: MELATONIN 3 MG TAB PO PRN (21:00)
[2025-01-31 22:00] VITALS: BP 162/81
--- NOTE | 2025-01-31 22:14 | NUR ---
PATIENT LYING IN BED WITH HOB ELEVATED WATCHING TV. IV FLUIDS AND ELECTROLTYES INFUSING WNL. SEIZURE PADS AND SCDS IN PLACE. PATIENT DENIES PAIN OR NAUSEA. AUDITORY AND VISUAL HALLUNICATIONS ENDORSED. PATIENT DENIES FURTHER NEEDS AT THIS TIME. CALL LIGHT IS WITHIN REACH. POWERS DRAINING APPROPRIATELY
[2025-01-31 23:00] VITALS: BP 148/75
--- NOTE | 2025-01-31 23:53 | NUR ---
PATIENT REPORTS SEVERE HALLUCINATIONS. HEARING AND SEEING PEOPLE WHO ARE NOT THERE. THEY ARE NOT THREATENING HER OR TELLING HER TO HARM ANYONE. SHE SAYS "I FEEL LIKE I CAN TALK TO THEM AND INTERACT WITH THEM. IM LIKE RUNNING AROUND IN CIRCLES IN MY DREAMS. WHERE AM I WHO AM I?" PATIENT REORIENTED TO SELF AND LOCATION. PATIENT REPORTS KNOWING SHE IS HAVING HALLUCINATIONS.
[2025-02-01] VITALS (18 sets, daily range): BP systolic 138–155; BP diastolic 68–92
--- NOTE | 2025-02-01 03:31 | NUR ---
PATIENT RESTING WITH EYES CLOSED, RESPIRATIONS EVEN AND UNLABORED. HR 97. SCDS AND SEIZURE PADS ARE IN PLACE
--- NOTE | 2025-02-01 04:14 | NUR ---
REASSESSED CIWA, SCORED 17. PATIENT COMPLAINED OF NOT BEING ABLE TO FIND A BED IN HER HALLUCINATIONS. A COMMON THEME OF HER HALLUCINATIONS WERE FOOD. SANDWICH AND JELLO GIVEN PER REQUEST. PATIENT AWARE OF HALLUCINATIONS AND AXO TIMES FOUR. TREMORS WITH MOVEMENT IMPROVING.
[2025-02-01 05:20] LABS: BASOPHILS 0.4 % (0.1-1.2); EOSINOPHILS 0.7 % (0.7-5.8); LYMPHOCYTES 16.9 % (19.3-51.7); MCH 29.4 PG (25.6-32.2); MCHC 33.2 g/dL (32.2-35.5); MCV 88.6 fL (79.4-94.8); MONOCYTES 7.1 % (4.7-12.5); NEUTROPHILS 74.0 % (34.0-71.1); RBC 4.11 M/uL (3.93-5.22)
[2025-02-01 05:39] LABS: ALT (SGPT) 79.0 U/L (14-59); AST (SGOT) 58.0 U/L (15-37); GLOMERULAR FILTRATION RATE,EST 117.0 mL/min (>60); PHOSPHORUS, INORGANIC 2.9 mg/dL (2.5-4.9); PROTEIN, TOTAL 5.9 g/dL (6.4-8.2); UREA NITROGEN 8.0 mg/dL (7-18)
--- NOTE | 2025-02-01 06:03 | NUR ---
PATIENT AWAKE AND ORIENTED TO ALL. PATIENT ENDORSES HAVING HALLUCINATIONS THAT ARE "NO LONGER FRIENDLY OR SILLY", HALLUCINATIONS ARE GORY AND DISCUSSING KILLING DOGS. PATIENT CANNOT RECALL THE LAST TIME SHE SLEPT. PATIENT DENIES FUTHER NEEDS AT THIS TIME.
--- NOTE | 2025-02-01 06:27 | NUR ---
PATIENT CONTINUES TO HAVE MODERATE VISUAL AND AUDITORY HALLUCINATIONS. PATIENT REPORTS BEING UNABLE TO REST. DENIES FURTHER NEEDS
--- NOTE | 2025-02-01 07:30 | NUR ---
REPORT RECEIVED FROM TESSY HODGES. AIRLINE OPERATIONS AGENT IN FOR ECHOCARDIODRAM.
--- NOTE | 2025-02-01 07:44 | NUR ---
UR CLINICAL REVIEW: [facility], MEETS INPATIENT FOR SUBSTANCE-RELATED DISORDERS CIWA 13, NAUSEATED, TREMORS, HALLUCINATIONS, HISTORY OF DT, HEARTRATE 116-130, IV FLUIDS, IV MEDICATIONS PAWSS SCORE OF 6 SOPHIAANKIT DIANE RAFAEL PPO INPT 01/31/2025 @ 1942 ORDER MATCHES REG AUTH PENDING, WILL SEND CLINICALS FOR REVIEW DC PLAN PENDING FURTHER TREATMENT. DC REVIEW 02/02/2025
[2025-02-01] MEDS ORDERED: THIAMINE HCL 200 MG/2 ML VIAL IV SCH (08:00)
[2025-02-01] MEDS ORDERED: LORazepam 2 MG/ML VIAL IV/IM PRN (08:00)
[2025-02-01] MEDS ORDERED: FOLIC ACID 1 MG/0.2 ML ML IV SCH (08:00)
[2025-02-01] MEDS ORDERED: MULTIVITAMINS THERAPEUTIC 1 EA TAB PO SCH (08:00)
--- NOTE | 2025-02-01 08:12 | NUR ---
PT STILL HAVING ECHO DONE.
--- NOTE | 2025-02-01 08:55 | NUR ---
DR SMITH IN TO SEE PT.
--- NOTE | 2025-02-01 09:05 | NUR ---
CATHETER REMOVED, PT HAS NO FURTHER REQUESTS.
--- NOTE | 2025-02-01 09:30 | NUR ---
PATIENT BRUSHED HER TEETH AND WASHED HER FACE. WE ALSO DID A SHAMPOO CAP. HELP PATIENT COMB HER HAIR. ALSO [place] CAME OVER AND GERSON BRAIDED HER HAIR. PATIENT IS SITTING UP IN BED.
[2025-02-01] MEDS ORDERED: DIVALPROEX SOD250 MG PO (09:37)
[2025-02-01] MEDS ORDERED: ATOMOXETINE HCL40 MG PO (09:38)
--- NOTE | 2025-02-01 10:05 | NUR ---
LOCUM TENENS IN TO SEE PT.
--- NOTE | 2025-02-01 10:06 | NUR ---
ALERT AND ORIENTED IN BED. LIVES IN A RENTAL HOUSE. HAS NO DME. PATIENT DRIVES AT BASELINE. STATES SHE HAS NO FINANCIAL CONCERNS. SHE HAS PREVIOUSLY WORKED WITH [facility] AND WOULD LIKE THEM NOTIFIED SHE WOULD LIKE TO SPEAK WITH THEM IF POSSIBLE. INFORMED HER THEY WERE PREVIOUSLY SHORT PEERS THIS WEEK DUE TO ILLNESSES, BUT WILL LET THEM KNOW AND SEE IF THEY CAN AT LEAST CALL HER IF THEY ARE UNABLE TO VISIT. SHE IS OK WITH WHATEVER [facility] CAN PROVIDE AT THIS TIME. STATES SHE ALSO NEEDS AT NEW PCP. PLACED ON [facility] L[facility] FOR PCP NEED AND CHART SENT TO [place] IN SCHEDULING.
--- NOTE | 2025-02-01 10:16 | NUR ---
CALLED AND MESSAGE LEFT WITH [facility] TO PLEASE CALL BACK.
[2025-02-01] MEDS ORDERED: BUPROPION XL150 MG PO (10:49)
[2025-02-01] MEDS ORDERED: LAMICTAL200 MG PO (10:49)
--- NOTE | 2025-02-01 10:50 | NUR ---
MED REC COMPLETE
[2025-02-01] MEDS ORDERED: buPROPion HCL XL 150 MG TAB.XL.24H PO SCH ×2 (11:50→14:00)
[2025-02-01] MEDS ORDERED: lamoTRIgine 100 MG TAB PO SCH (11:51)
[2025-02-01] MEDS ORDERED: DIVALPROEX SODIUM 250 MG TABLET.DR PO SCH (11:51)
[2025-02-01] MEDS ORDERED: PHARMACY RENAL DOSE ADJUSTMENT 1 DOSE MISC PO SCH (12:00)
--- NOTE | 2025-02-01 12:05 | NUR ---
PT UP TO VOID THEN UP TO SIT IN CHAIR, MINIMAL TREMORS, DENIES NAUSEA, DENIES HEADACHE AT THIS TIME.
--- NOTE | 2025-02-01 14:12 | NUR ---
[facility] INFORMATION PROVIDED TO PATIENT. ALSO INFORMED HER OF PCP APPOINTMENT FOR NEXT WEEK, IT IS ON HER DISCHARGE INSTRUCTIONS. PATIENT STATES SHE NEEDS PAPERWORK FOR JOB, INFORMED HER PCP CAN COMPLETE FMLA FORMS IF NEEDED AND PHYSICIAN NOTE CAN BE PROVIDED IF NEEDED.
--- NOTE | 2025-02-01 15:46 | NUR ---
PT RESTING WITH EYES CLOSED, RESP EVEN AND UNLABORED. BED ALARM ON.
--- NOTE | 2025-02-01 16:49 | NUR ---
PATIENT USED NURSE CALL LIGHT TO ASK FOR ASSISTANCE TO THE BATHROOM. PATIENT UP ON PERSON ASSIST, SHE IS NOTED TO HAVE UNSTEADY GAIT, SHE IS NOTED TO BE DROWSY. SHE VOIDED 1000ML CLEAR YELLOW URINE. THEN WASHED HER HANDS AND AMBULATED BACK TO BED, SCDS ON, ROTARY DRUM TANNER ON, CALL LIGHT IN REACH, SHE ASKED ABOUT DINNER, DINNER SHOULD BE COMING SOON. FRESH WATER PROVIDED. PATIENT HAS NO OTHER REQUESTS AT THIS TIME.
--- NOTE | 2025-02-01 19:49 | NUR ---
PATIENT USED NURSE CALL LIGHT TO REQUEST ASSISTANCE TO BATHROOM, PATIENT ONE PERSON STANDBY ASSIST FOR UNSTEADY GAIT. SHE VOIDED 650ML YELLOW URINE. PATIENT BACK TO BED, CALL LIGHT IN REACH. SHE REPORTS NO FURTHER NEEDS AT THIS TIME.
[2025-02-01] MEDS ORDERED: PHENOBARBITAL SOD 130 MG/ML VIAL IV SCH (22:00)
[2025-02-02] VITALS (11 sets, daily range): BP systolic 129–156; BP diastolic 73–98
--- NOTE | 2025-02-02 00:32 | NUR ---
PATIENT RESTING WITH EYES CLOSED, RESPIRATIONS EVEN AND UNLABORED.
--- NOTE | 2025-02-02 00:59 | NUR ---
ANSWERED CALL LIGHT, PATIENT UP TO BATHROOM. VOIDED 800ML YELLOW URINE. RAC IV REMOVED PER PATIENT REQUEST WNL. CALL LIGHT AND PERSONAL BELONGINGS ARE WNL. FRESH ICE WATER PROVIDED.
--- NOTE | 2025-02-02 01:15 | NUR ---
CALL LIGHT ANSWERED. PATIENT REQUESTING NAIL FILE FOR HER TOE NAILS. SOME TOE NAILS ARE DISCOLORED. PATIENT DENIES FURTHER NEEDS
--- NOTE | 2025-02-02 04:03 | NUR ---
CALL LIGHT ANSWERED, REQUESTED COFFEE AND FRESH ICE WATER. ENCOURAGED TO SLEEP. PATIENT INDICATED SHE NEEDS TO GET BACK ON HER NORMAL SLEEP SCHEDULE.
--- NOTE | 2025-02-02 04:30 | NUR ---
PATIENT UP TO BATHROOM TO VOID. PATIENT STEADY ON FEET. DENIES NAUSEA OR PAIN AT THIS TIME. PATIENT REQUEST MORE ICE WATER AND COFFEE WHICH WAS PROVIDED. NO FURTHER NEEDS AT THIS TIME. CALL LIGHT IN REACH.
[2025-02-02 05:14] LABS: BASOPHILS 0.8 % (0.1-1.2); EOSINOPHILS 3.7 % (0.7-5.8); LYMPHOCYTES 21.3 % (19.3-51.7); MCH 29.7 PG (25.6-32.2); MCHC 33.1 g/dL (32.2-35.5); MCV 89.7 fL (79.4-94.8); MONOCYTES 5.3 % (4.7-12.5); NEUTROPHILS 68.4 % (34.0-71.1); RBC 4.28 M/uL (3.93-5.22)
[2025-02-02 05:40] LABS: ALT (SGPT) 81.0 U/L (14-59); AST (SGOT) 55.0 U/L (15-37); GLOMERULAR FILTRATION RATE,EST 116.0 mL/min (>60); PROTEIN, TOTAL 6.2 g/dL (6.4-8.2); UREA NITROGEN 8.0 mg/dL (7-18)
--- NOTE | 2025-02-02 07:30 | NUR ---
REPORT RECEIVED FROM TESSY HODGES. PT AWAKE IN BED, NO NEEDS AT THIS TIME.
[2025-02-02] MEDS ORDERED: THIAMINE HCL 100 MG TAB PO SCH (08:00)
[2025-02-02] MEDS ORDERED: buPROPion HCL XL 300 MG TAB.XL.24H PO SCH (09:00)
--- NOTE | 2025-02-02 09:02 | NUR ---
PT AWAKE IN BED, WAITING ON DISCHARGE ORDER FROM MD. NO NEEDS AT THIS TIME.
--- NOTE | 2025-02-02 09:23 | NUR ---
INTO ROOM TO ANSWER CALL LIGHT. PT AMBULATED TO BATHROOM VIA SBA, PT STEADY ON FEET. PT HAD FORMED BM PRESENT. PT NOW BACK IN BED, WATER REFRESHED. CALL LIGHT IN REACH
[2025-02-02] MEDS ORDERED: PHENOBARBITAL30 MG PO (09:40)
[2025-02-02] MEDS ORDERED: NALTREXONE HCL50 MG PO (09:41)
[2025-02-02] MEDS ORDERED: ATIVAN1 MG PO (09:42)
--- NOTE | 2025-02-02 10:30 | NUR ---
PT WAS GIVEN DISCHARGE INSTRUCTIONS WELL REMINDED OF PCP APPOINTMENT AND PLAN FOR [facility] FOLLOW UP. IV DC'D WITH TIP INTACT. PT WAS GIVEN COUNSELING BY PHARMACIST AND WAS GIVEN PRESCRIPTION. PT HAS NO QUESTIONS AND STATES SHE UNDERSTANDS INSTRUCTIONS. SISTER COMING FOR PT, PT WHEELED OUT BY RN FOR HOME.
[2025-02-03] MEDS ORDERED: FOLIC ACID 1 MG TAB PO SCH (08:00)
== END 2025-02-02 11:10 | disposition home or self-care (01) | DRG 897 ==
LOC: ED 12:20 → CCU 19:45
PROVIDERS: Emergency Medicine; ADMIT Student in an Organized Health Care Education/Training Program; ATTEND Student in an Organized Health Care Education/Training Program
PROC: 0T9B70Z Drainage of Bladder with Drainage Device, Via Natural or Artificial Opening (ICD-10-PCS; principal; 2025-01-31)
PROC: HZ2ZZZZ Detoxification Services for Substance Abuse Treatment (ICD-10-PCS; 2025-01-31)
PROC: 3E03329 Introduction of Other Anti-infective into Peripheral Vein, Percutaneous Approach (ICD-10-PCS; 2025-01-31)
DX: F10.239 Alcohol dependence with withdrawal, unspecified (principal); N39.0 Urinary tract infection, site not specified; F31.9 Bipolar disorder, unspecified; F41.1 Generalized anxiety disorder; F10.229 Alcohol dependence with intoxication, unspecified; K76.0 Fatty (change of) liver, not elsewhere classified; Y90.6 Blood alcohol level of 120-199 mg/100 ml; Z90.49 Acquired absence of other specified parts of digestive tract; Z95.1 Presence of aortocoronary bypass graft; Z79.899 Other long term (current) drug therapy
CPT/HCPCS: 36415; 74177; 80053; 81001; 83690; 83735; 84100; 84703; 85025; 87088; 93306; A4311; A9270; G0480; J0696; J2060; J2405; J2470; J2560; J3411; J3475; J7030; J7121; Q9967